=== PATIENT | female | born 2000 | race Caucasian/White ===

== ENCOUNTER 2024-08-15 17:51 | Emergency (ER) | payer BC, SELFPAY ==
--- NOTE | 2024-08-15 18:00 | ED_ITS ---
HPI - URI/Sore Throat General Chief Complaint: Upper Respiratory Infection Stated Complaint: Sinus/Cough Time Seen by Provider: 08/15/24 17:55 Source: patient Mode of arrival: ambulatory Limitations: no limitations History of Present Illness HPI Narrative: Patient is a 24-year-old female who presents with fever, chills, sinus congestion and mild cough for 3 days. Patient has tried Mucinex with no relief. Denies any nausea, vomiting, diarrhea. 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 Related Data Allergies Allergy/AdvReac Type Severity Reaction Status Date / Time shrimp Allergy Unknown Unknown Verified 06/02/18 11:37 Review of Systems Review of Systems: All systems reviewed & are unremarkable except as noted in HPI and below Constitutional: Constitutional: Reports chills, Denies fatigue, Reports fever(s), Denies headache(s), Denies malaise and Denies weakness Eyes: Eyes: Denies blurry vision, Denies itchy eyes and Denies loss of vision ENT: Denies otalgia, Denies headache(s), Reports nasal congestion, Denies sinus pain and Denies sore throat Cardiovascular: Cardiovascular: Denies chest pain, Denies irregular heart rhythm and Denies dyspnea Respiratory: Respiratory: Reports cough and Denies dyspnea Gastrointestinal: Gastrointestinal: Denies abdominal pain, Denies diarrhea, Denies nausea and Denies vomiting Musculoskeletal: Musculoskeletal: Denies back pain, Denies myalgias and Denies arthralgias Integumentary/Breasts: Skin/Breast: Denies pruritus and Denies rash Neurologic: Denies headache(s), Denies loss of vision and Denies weakness Psychiatric: Psychiatric: Reports no additional psychiatric complaints Endocrine: Endocrine: Denies fatigue Allergic/Immunologic: Allergic/Immunologic: Denies itchy eyes PMFSH Comments At time of signature, agree with nursing past medical, surgical, social and family history. There is no relevant family history pertinent to the presenting complaint. Exam Const: General: cooperative, healthy appearing, comfortable, no acute distress and well nourished Nutritional Appearance: well nourished Noble entation/consciousness: patient oriented x3 Limitations: no limitations HENMT: Head: normal to inspection, normocephalic and atraumatic Ears: hearing grossly normal bilaterally, external ears normal, TM's normal bilaterally, EAC's normal and no periauricular adenopathy Face/Nose/Sinus: Normal external nose present, Abnormal mucous membranes and turbinates present erythematous bilateral and diffuse, normal facial exam, sinuses nontender and face symmetric Face and sinus: normal facial exam, sinuses nontender and face symmetric Mouth: Yes Normal oral and palatal mucosa present, Yes lip normal, Yes tongue normal, Yes Normal salivary glands and ducts present, Yes oropharynx normal and Yes moist mucous membranes Teeth and gingiva: dentition normal Throat: posterior oropharynx normal, tonsils normal and uvula midline Eyes: General: appearance normal, both eyes and all related structures Alignment and Position: alignment normal and position normal Periorbital: periorbital findings normal Eyelids: eyelids normal Pupils: Equal, round and reactive pupils present Neck: Neck: normal visual inspection, full ROM, no lymphadenopathy and supple Chest: Chest palpation & inspection: normal inspection of the chest and normal palpation of entire chest wall Resp: Effort & Inspection: normal respiratory effort and able to speak in complete sentences Auscultation: clear to auscultation bilaterally, no crackles, no rales, no rhonchi and no wheezes Cardio: Rate: regular rate Rhythm: regular rhythm Heart sounds: S1 normal heart sound present and S2 normal heart sound present GI: Inspection: normal to inspection Skin: General skin exam: normal color and no rashes or lesions noted Neuro: General: patient oriented x3 and moves all extremities Cranial nerves: Yes Equal, round and reactive pupils present Speech: normal speech Gait exam (Neuro): Normal gait present Extrem: General: normal to inspection, full ROM and no edema Psych: Appearance: grossly normal and well kempt Mental Status: mental status grossly normal Speech and movement: Normal speech and movement present Affect: normal affect Attitude: cooperative Thought process: Normal thought process present Course Course Emergency Course: Discharge instructions reviewed with patient, as well as provided in writing per nursing staff. The instructions also include specific and strict return/GO TO THE ER as well as f/u information. All questions have been answered, and the patient deny any further questions with discharge and discharge plan. Portions of this record may have been created with voice recognition software Level of Care: Express Care Visit Vital Signs Vital signs: Vital Signs Pulse Rate 90 08/15/24 18:20 Respiratory Rate 15 08/15/24 18:20 Pulse Oximetry 100 08/15/24 18:20 Temperature 36.8 C 08/15/24 18:22 Pulse Rate 90 08/15/24 18:22 Respiratory Rate 15 08/15/24 18:22 Blood Pressure 114/66 08/15/24 18:22 Pulse Oximetry 100 08/15/24 18:22 Oxygen Delivery Room Air 08/15/24 18:22 Reviewed MDM - URI/Sore Throat MDM Narrative Medical decision making narrative: Pt well hydrated appearing, in no respiratory distress, hemodynamically stable. Recommend supportive care. The patient is stable at time of discharge the clinical impression was discussed and the patient was given the opportunity to ask questions, which were addressed as completely as possible given the information available at present. Anticipatory guidance and return to care precautions were discussed and the importance of primary care follow-up was stressed and encouraged. The patient voiced understanding of the plan, indicati ons to return, and the need for follow-up. Differential diagnosis considered: Bronchitis, Marie virus, strep pharyngitis, allergic rhinitis, upper respiratory tract infection, sinusitis, rhinosinusitis, nasopharyngitis. viral pharyngitis, otitis media, otitis externa, otitis effusion, foreign body, cerumen impaction, viral syndrome, and influenza.? Exam findings show no acute concerns or changes; patient is non-toxic appearing and is in no distress.? Patient is appropriate for outpatient treatment and follow- up.? Medical Records Attestation: I reviewed the patient's medical records. Lab Data Attestation: I reviewed the patient's lab results. Labs: Lab Results 08/15/24 Range/Units 18:33 POC Influenza A Ag Positive (Negative) POC Influenza B Ag Negative (Negative) POC SARS CoV-2 Ag Negative (Negative) Discharge Plan Discharge Clinical Impression: Influenza Patient Disposition: Home, Self-Care Condition: Stable Instructions: Influenza (ED) Additional Instructions: Were positive for influenza A. Your Covid is negative Your symptoms are due to a viral illness, which is not treated with antibiotics. Viral symptoms can be present for up to a few weeks. -For fever/pain, you may take: Tylenol 650-1000mg by mouth every 4-6 hours. Do not exceed 4000mg in 24 hours. Advil (Ibuprofen) 600 mg by mouth every 6 hours. Do not exceed 2400mg in 24 hours. 8 AM: Tylenol 11 AM: Ibuprofen 2 PM: Tylenol 5 PM: Ibuprofen 8 PM: Tylenol 11 PM: Ibuprofen 2 AM: Tylenol 5 AM: Ibuprofen -Antihistamine medication such as Benadryl/Zyrtec at night and Claritin/Hetal during the day can help improve symptoms. -Use Flonase twice a day for 5 days then daily to help reduce the inflammation and dry up your sinuses. -You can also use Sudafed behind the pharmacy counter(12 or 24 hour). Be sure to drink plenty of water with these medications at least 8 ounces with every dose and it is important to drink 8 to 10 glasses of water per day. Water is a natural decongestant -Eat and drink things that are easy to swallow, like tea or soup, or popsicles. -Oral rinses such as: Salt water gargles and/or may use topical anesthetic (eg. Chloraseptic spray) or lozenges to relieve dryness or throat pain). -Frequent hand washing or hand product development actuary is one of the best ways to prevent s pread of infection. -Using a vaporizer or humidifier at night will also help thin secretions and help with coughing up phlegm. -Follow up with primary care provider in 3-5 days if condition is not improving - For new or worsening symptoms go directly to the nearest ER Patient Language: Yemeni Prescriptions: New fluticasone propionate [Flonase Allergy Relief] 50 mcg/actuation spray,suspension 1 spray intranasal DAILY Qty: 16 0RF Rx Instructions: administer into each nostril Follow-up/Referrals: Yarelis,JAYDE Stafford [Primary Care Provider] - 3 Days Stand Alone Forms: Work/School Release IP Time of Disposition: 18:36
[2024-08-15 18:20] VITALS: PULSE 90; RESP 15; O2SAT 100
[2024-08-15 18:22] VITALS: BP 114/66; PULSE 90; RESP 15; TEMP 36.8; O2SAT 100
[2024-08-15 18:35] LABS: EDCOVIDSCREEN Negative (Negative); EDINFLUASCREEN Positive (Negative); EDINFLUBSCREEN Negative (Negative)
== END 2024-08-15 18:45 | disposition home or self-care (01) ==
PROVIDERS: Emergency Provider Nurse Practitioner Family; PCP Physician Assistant
DX: J10.1 Influenza due to other identified influenza virus with other respiratory manifestations (principal); Z20.822 Contact with and (suspected) exposure to COVID-19
CPT/HCPCS: 87426; 87804; 99203; G0463

== ENCOUNTER 2024-10-23 17:41 | Emergency (ER) | payer BC, SELFPAY ==
--- OUTSIDE RECORDS SUMMARY | 2024-10-23 17:43 | XMS_ITS | Encounter Summary ---
Author Organization [facility] Address [address] [place] [address] Care Team Providers Care Promotions Team Leader Name Role Phone Milly Santoyo PA-C Primary Care Provider [phone] Nadine Kerns NP Primary Care Provider [phone] Encounter Details Date Type Department Care Team (Late st Contact Info) Description 12/18/2023 [employer] Message Enc [facility] Medical Group Family & Internal Medicine [address] [address] Milly Santoyo PA-[place] [facility] [place] [address] TB test and physical form Social History Tobacco Use Types Packs/Day Years Used Date Smoking Tobacco: Never Smokeless Tobacco: Never Alcohol Use Standard Drinks/Week Comments No 0 (1 standard drink = 0.6 oz pur e alcohol) AUDIT-C Answer Date Recorded Frequency of Alcohol Consumption Never 09/21/2018 Average Number of Drinks Not on file 019 Frequency of Binge Drinking Not on file 08/25 PHQ-2 Answer Date Recorded Patient Health Questionnaire-2 Score 2 01/13/2023 Education Answer Date Recorded What is the highest level of school you have completed or the highest degree you have received? High school graduate 02/07/2019 Comments No Sex and Gender Information Value Date Recorded Sex Assigned at Female 10/11/2018 8:26 PM CDT Legal Sex Female 4:21 PM CDT Gender Identity Female 10/11/2018 8:26 PM CDT Sexual Orientation Straight 10/11/2018 8: 26 PM CDT Occupation Industry Job Start Date Job End Date Not on file Not on file Not on file Not on file documented as of this encounter Functional Status * RETIRED Are you deaf or do you have serious difficulty hearing Answer Date of Assessment Author Status No 10/15/2018 1:12 PM CDT Activ e * RETIRED Are you blind or do you have serious difficulty seeing, even when wearing glasses? Answer Date of Assessment Author Status No 10/15/2018 1:12 PM CDT Activ e * Do you have serious difficulty walking or climbing stairs? Answer Date of Assessment Author Status No 10/15/2018 1:12 PM CDT Minna Short RN Active * Do you have difficulty dressing or bathing? Answer Date of Assessment Author Status No 10/15/2018 1:12 PM CDT Minna Short RN Active * Because of a physical, mental, or emotional condition, do you have difficulty doing errands alone such as visiting a doctor's office or shopping? Answer Date of Assessment Author Status No 10/15/2018 1:12 PM CDT Minna Short RN Active documented as of this encounter Mental Status * Because of a physical, mental, or emotional condition, do you have serious difficulty concentrating, remembering, or making decisions? Answer Entry Date Author Status No 10/13/2018 8:28 AM CDT Lea Mcmahon RN Active documented in this encounter Progress Notes * Laura Li MA - 12/18/2023 10:06 AM CDT Physical and TB test results printed and put up front documented in this encounter Plan of Treatment Not on file documented as of this encounter Visit Diagnoses Not on filedocumented in this encounter Additional Health Concerns Assessment Noted Time PHQ-9 Depression Total Score: 10 023 9:10 AM CDT documented as of this encounter Care Teams Promotions Team Leader Relationship Specialty Start Date End Date Milly Santoyo PA-C PCP - General PHYSICIAN WEB SERVICES DEVELOPER 01/13/23 08/26/24 [place] [id number] [address] PCP - General Nurse Practitioner Family 08/27/24 documented as of this encounter
--- OUTSIDE RECORDS SUMMARY | 2024-10-23 17:43 | XMS_ITS | Encounter Summary ---
Author Organization [facility] Address [address] [place] [address] Care Team Providers Care Family Service Aide Name Role Phone Milly Santoyo PA-C Primary Care Provider [phone] Nadine Kerns NP Primary Care Provider [phone] Encounter Details Date Type Department Care Team (Late st Contact Info) Description 03/22/2023 [employer] Message Enc [facility] Medical Group Family & Internal Medicine [address] [address] Milly Santoyo PA-C [facility] [place] [address] Prescription Social History Tobacco Use Types Packs/Day Years [...] Mcmahon RN Active documented in this encounter Plan of Treatment Not on file documented as of this encounter Visit Diagnoses Not on filedocumented in this encounter Additional Health Concerns Infection Onset Date Last Indicated Resolved Time COVID-19 Rule Out 05/11/2023 05/11/2023 05/11/2023 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
--- OUTSIDE RECORDS SUMMARY | 2024-10-23 17:43 | XMS_ITS | Encounter Summary ---
Author Organization [facility] Address [address] [place] [address] Care Team Providers Care Shift Coordinator Name Role Phone None, Provider Primary Care Provider Ania Juarez MD Primary Care Provider Melonie Bobby [facility] Primary Care Provider + Milly Santoyo-C Primary Care Provider [phone] Nadine Kerns NP Primary Care Provider [phone] Encounter Details Date Type Department Care Team (Latest Contact Info) Description 05/01/[address] [facility] Medical Group Sara Mancuso MD Social History Tobacco Use Types Packs/Day Years Used Date Smoking Tobacco: Never Assessed Comments Unknown Sex and Gender Information Value Date Recorded Sex Assigned at Female 10/11/2018 8:26 PM CDT Legal Sex Female 4:21 PM CDT Gender Identity Female 10/11/2018 8:26 PM CDT Sexual Orientation Straight 10/11/2018 8: 26 PM CDT documented as of this encounter Plan of Treatment Not on file documented as of this encounter Visit Diagnoses Not on filedocumented in this encounter Additional Health Concerns Infection Onset Date Last Indicated Resolved Time COVID-19 Rule Out 05/11/2023 05/11/2023 05/11/2023 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 COVID-19 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 Out 11/15/2023 11/15/2023 11/15/2023 8:15 PM CDT documented as of this encounter Care Teams Shift Coordinator Relationship Specialty Start Date End Date None, Provider, PCP - General 05/29/18 09/20/18 Ania Dixon MD [address] [facility], [address] [address] PCP - General FAMILY PRACTICE 09/21/18 02/12/19 [facility] [address] [address] PCP - General Nurse Practitioner Family 02/13/1912/25 Milly Santoyo, PATachoC [address] [address] PCP - General PHYSICIAN FLAP LINING BINDER 01/13/23 08/26/24 [place] [address] [facility] [address] [address] PCP - General Nurse Practitioner Family 08/27/24 documented as of this encounter
--- OUTSIDE RECORDS SUMMARY | 2024-10-23 17:43 | XMS_ITS | Clinical Summary ---
Author Organization [facility] Address [address] [place] [address] Care Team Providers Care Electronic Publications Specialist Name Role Phone Melonie Bobby MAYTE-BENCH WORKER APPRENTICE Primary Care Provider Source Comments [facility],non-owned Affiliates and Associated Physician Practices is amultiple site organization consisting of ambulatory clinics and hospital sitesin [place], [place], [place] and [place]. This disclosure is being madepursuant to the Care Everywhere program and may not contain all information available regarding this patient. Last updated 18.[facility] Allergies Active Allergy Reactions Criticality Noted Date Comments Shellfish Allergy Dizziness High 04/24/2019 Medications * Be aware that medications may not be up to date on this document. Alwaysverify current medications with the patient. sertraline (ZOLOFT) 25 MG tablet Take 25 mg by mouth at bedtime Active naproxen (NAPROSYN) 375 MG tablet Take 1 tablet by mouth 2 times daily 14 tablet 9 Active Additional Information Patient not taking.Reported on 06/01/2021 cyclobenzaprine (FLEXERIL) 5 MG tablet Take 1 tablet by mouth 3 times daily as needed (Muscle spasms) 14 tablet 9 Active Additional Information Patient not taking.Reported on 06/01/2021 acetaminophen-c odeine (TYLENOL #3) 300-30 MG tablet Take 1 tablet by mouth every 6 hours as needed pain Active Levonorgestrel (POLO) 13.5 MG Acti ve oseltamivir (TAMIFLU) 75 MG capsule 1 po bid for 5 days 10 capsule 2 Active amoxicillin-cla vulanate (Augmentin) 875-125 MG tablet Take 1 (one) tablet by mouth 2 times daily with morning and evening meal 20 tablet 3 Active Active Problems No known active problems Immunizations Immunization Administration Dates Next Due DTaP VACCINE IM (6wk-6yrs) 02/21/2005,,2000,2000,07/15 HEP B VACCINE, PED/ADOL 05/11/2001,2000, HIB BOOSTER 09/20/2001,2000,2000 ,2000 MMR 02/21/2005,09/20/2001 POLIO IPV 02/21/2005,05/11/2001,2000 ,2000 PPD 02/21/2005 VARICELLA 05/11/2001 Social History Tobacco Use Types Packs/Day Years Used Date Smoking Tobacco: Never Smokeless Tobacco: Never Tobacco Cessation:Counseling Given: Not Answered PHQ-2 Answer Date Recorded PHQ2 TOTAL SCORE 0 06/01/2021 Comments No Sex and Gender Information Value Date Recorded Sex Assigned at Not on file Legal Sex Female 6:56 AM TELEPATHIST Gender Identity Not on file Sexual Orientation Not on file Last Filed Vital Signs Vital Sign Reading Time Taken Comments Blood Pressure 114/62 03/16/2023 8:45 AM CDT Pulse 86 03/16/2023 8:45 AM CDT Temperature 36.8 C (98.2 F) 03/16/2023 8:45 AM CDT Respiratory Rate 14 09/13/2021 10:55 AM CDT Oxygen Saturation 99% 03/16/2023 8:45 AM CDT Inhaled Oxygen Concentration - - Weight 47.6 kg (105 lb) 09/13/2021 10:55 AM CDT Height 162.6 cm (5' 4 ) 03/16/2023 8:45 AM CDT Body Mass Index 18.02 09/13/2021 10:55 AM CDT Plan of Treatment Health Maintenance Due Date Last Done Comments PAP SMEAR 2000 DTAP/TDAP/TD VACCINES (6 - Tdap) 2011 02/21/2005, 09/12/2001, 2000, Additional history exists HIV SCREENING 2015 HPV VACCINE (1 - 3-dose series) 2015 CHLAMYDIA/GONORRHEA SCREENING 2016 HEPATITIS C SCREENING 04/30/2018 COVID-19 VACCINE (2023- season) 2024 DEPRESSION SCREENING 06/26/2024 INFLUENZA VACCINE (Season Ended) 2025 04/27/2021, 05/13/2020 ZOSTER VACCINE (1 of 2) 2050 HEPATITIS B VACCINE Completed 05/11/2001, 2000, 2000 HIB VACCINE Completed 09/20/2001, 10/25, 2000, Additional history exists MENINGOCOCCAL (Group B) VACCINE SHARED DECISION-MAKING Aged Out No longer eligible based on patient's age to complete this topic MENINGOCOCCAL GROUPS A/C/Y/W VACCINE Aged Out No longer eligible based on patient's age to complete this topic PNEUMOCOCCAL VACCINE Aged Out No long er eligible based on patient's age to complete this topic Insurance MEDICAID - [place] [employer] LIABILITY Republican Liability Care Teams Electronic Publications Specialist Relationship Specialty Start Date End Date Melonie Bobby APRN-MARIA A [address] [place] [address] PCP - General Nurse Practitioner Family 12/24/20
--- OUTSIDE RECORDS SUMMARY | 2024-10-23 17:43 | XMS_ITS | Encounter Summary ---
Author Organization [facility] Address [address] [place] [address] Care Team Providers Care Retail Project Merchandiser Name Role Phone None, Provider Primary Care Provider Ania Juarez MD Primary Care Provider [phone] Melonie Bobby [facility] Primary Care Provider + Milly Santoyo-C Primary Care Provider [phone] Nadine Kerns NP Primary Care Provider Encounter Details Date Type Department Care Team (Late st Contact Info) Description 05/14/2018 Community Orders [facility] EPICCARE LINK Ania Dixon MD [address] [place] [address] [place] [id number] Social History Tobacco Use Types Packs/Day Years [...] documented as of this encounter Visit Diagnoses Diagnosis (HHS/HCC)- Primary state, incidental documented in this encounter Additional Health Concerns Infection Onset Date Last Indicated Resolved Time COVID-19 Rule Out 05/11/2023 05/11/2023 05/11/2023 1:16 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 COVID-19 Rule Out 11/15/2023 11/15/2023 11/15/2023 8:15 PM CDT documented as of this encounter Care Teams Retail Project Merchandiser Relationship Specialty Start Date End Date None, Provider, PCP - General 05/29/18 09/20/18 Ania Dixon MD [address], [place] [address] [place] [address] PCP - General FAMILY PRACTICE 09/21/18 02/12/19 [facility]ie [facility] [address], [place] [address] [place] [address] PCP - General Nurse Practitioner Family 02/13/19 7 Milly Santoyo PA-C [address], [place] [address] [place], [place] [address] PCP - General PHYSICIAN OPTICAL INSTRUMENT INSPECTOR 01/13/23 08/26/24 Nadine Kerns TYING IN MACHINE OPERATOR [address] [address] PCP - General Nurse Practitioner Family 08/27/24 documented as of this encounter
--- OUTSIDE RECORDS SUMMARY | 2024-10-23 17:43 | XMS_ITS | Encounter Summary ---
Author Organization [facility] Address [address] [place] [address] Care Team Providers Care Pattern Changer Name Role Phone Milly Santoyo PA-C Primary Care Provider [phone] Nadine Kerns NP Primary Care Provider [phone] Encounter Details Date Type Department Care Team (Late st Contact Info) Description 12/18/2023 [employer] Message Enc [facility] Medical Group Family & Internal Medicine [address] [address] [facility] Provider appointment request Social History Tobacco Use Types Packs/Day Years [...] documented as of this encounter Care Teams Pattern Changer Relationship Specialty Start Date End Date Milly Santoyo PA-C PCP - General PHYSICIAN PRINTING MECHANIST 01/13/23 08/26/24 [place] [address] [place] [address] PCP - General Nurse Practitioner Family 08/27/24 documented as of this encounter
--- OUTSIDE RECORDS SUMMARY | 2024-10-23 17:43 | XMS_ITS | Encounter Summary ---
Author Organization [facility] Address [address] [place] [id number] Care Team Providers Care Jewelry Setter Name Role Phone Ania Dixon MD Primary Care Provider [phone] Melonie Bobby DIRECTOR CASE- Primary Care Provider + Milly Santoyo-C Primary Care Provider [phone] Nadine Kerns NP Primary Care Provider [phone] Encounter Details Date Type Department Care Team (Late st Contact Info) Description 10/24/2018 Hospital Follow-up Call [facility] [place] [address] Yenny Odonnell, RN Social History Tobacco Use Types Packs/Day Years Used Date Smoking Tobacco: Never Smokeless Tobacco: Never Alcohol Use Standard Drinks/Week Comments No 0 (1 standard drink = 0.6 oz pur e alcohol) AUDIT-C Answer Date Recorded Frequency of Alcohol Consumption Never 09/21/2018 Average Number of Drinks Not on file 019 Frequency of Binge Drinking Not on file 08/25 Comments No Sex and Gender Information Value Date Recorded Sex Assigned at Female 10/11/2018 8:26 PM CDT Legal Sex Female 4:21 PM CDT Gender Identity Female 10/11/2018 8:26 PM CDT Sexual Orientation Straight 10/11/2018 8: 26 PM CDT documented as of this encounter Functional Status [...] Rule Out 05/11/2023 05/11/2023 05/11/2023 1:16 PM LOCAL COORDINATOR COVID-19 Rule Out 11/15/2023 11/15/2023 11/15/2023 8:15 PM CDT documented as of this encounter Care Teams Jewelry Setter Relationship Specialty Start Date End Date Ania Dixon MD [address] , [address] [address] PCP - General FAMILY PRACTICE 09/21/18 02/12/19 [facility] [address], [address] [place] [address] PCP - General Nurse Practitioner Family 02/13/19 7/ Milly Santoyo PA-C [address] [address] PCP - General PHYSICIAN [employer] OPERATOR HELPER 01/13/23 08/26/24 [place] [id number] [address] PCP - General Nurse Practitioner Family 08/27/24 documented as of this encounter
--- OUTSIDE RECORDS SUMMARY | 2024-10-23 17:43 | XMS_ITS | Clinical Summary ---
Author Organization [facility] Address [address] [place] [address] Care Team Providers Care Contract Administration Manager Name Role Phone Nadine Kerns Carmen SATELLITE DISH REPAIRER Primary Care Provider [phone] Allergies Active Allergy Reactions Criticality Noted Date Comments Shellfish-Derived Products Swelling,Dizziness 09/21/2018 I blacked out Shrimp Extract Other (see comment) Low 08/09/2018 Pt reports swollen throat and tingling extremities Medications levonorgestrel (POLO) 13.5 MG IUD Active clindamycin (CLEOCIN T) 1 % lotion APPLY TO AFFECTED AREAS OF FACE DAILY. 04/30/2022 Active tretinoin (RETIN-A) 0.025 % cream APPLY A PEA SIZED DROP TO AFFECTED AREAS OF SKIN EVERY NIGHT 04/30/2022 Active FLUoxetine (PROZAC) 20 MG capsuleIndicati ons:CHARLES (generalized anxiety disorder) Take 1 capsule (20 mg total) by mouth daily. 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 Will restart sertraline. FU in 1 month. If still having issues may consider prn buspar for panic ([facility]) 10/13/2018 02/08/20 19 Backache 11/04/2013 02/07/2019 Well child visit 10/30/2013 02/07/2019 Encounters Date Type Department Care Team Description 08/15/2024 Scan [facility] INFO SRVCS Scanned, Doc [facility] from Last 3 Months Immunizations Immunization Administration Dates Next Due Dtap (Acel-Immune) 02/21/2005, 2,2000,2000,2000 Dtap (Generic) 02/21/2005, 2,2000,2000,2000 Fluzone 6 Months+ Quad (0.5 mL Prefilled Syringe) 04/27/2021,05/13/2020 Hepatitis B Pediatric 05/11/2001,2000,02/2000 Hib Vaccine, Prp-D 09/20/2001, 1,2000,2000 MMR (Generic) 02/21/2005,09/20/2001 Polio Ipv (Generic) 02/21/2005, 1,2000,2000 Tdap (Generic) 08/03/2018 Varicella Vaccine 05/11/2001 Family History Medical History Relation Comments Hypertension Mother Diabetes Paternal Grandmother Relation Status Comments Father Alive Mother Alive Paternal Grandmother Social History Tobacco Use Types Packs/Day Years Used Date Smoking Tobacco: Never Smokeless Tobacco: Never Tobacco Cessation:Counseling Given: Not Answered Alcohol Use Standard Drinks/Week Comments No 0 (1 standard drink = 0.6 oz pur e alcohol) AUDIT-C Answer Date Recorded Frequency of Alcohol Consumption Never 09/21/2018 Average Number of Drinks Not on file 019 Frequency of Binge Drinking Not on file 08/25 PHQ-2 Answer Date Recorded Patient Health Questionnaire-2 Score 0 06/10/2024 Education Answer Date Recorded What is the [...] file Not on file Not on file Last Filed Vital Signs Vital Sign Reading Time Taken Comments Blood Pressure 96/68 06/10/2024 3:16 PM GAS PLANT SPECIALIST Pulse 86 06/10/2024 3:16 PM GAS PLANT SPECIALIST Temperature 36.9 C (98.5 F) 06/10/2024 3:16 PM GAS PLANT SPECIALIST Respiratory Rate 16 06/10/2024 3:16 PM GAS PLANT SPECIALIST Oxygen Saturation 99% 06/10/2024 3:16 PM GAS PLANT SPECIALIST Inhaled Oxygen Concentration - - Weight 54.4 kg (120 lb) 06/10/2024 3:16 PM GAS PLANT SPECIALIST Height 165.1 cm (5' 5 ) 06/10/2024 3:16 PM GAS PLANT SPECIALIST Body Mass Index 19.97 06/10/2024 3:16 PM GAS PLANT SPECIALIST Plan of Treatment Health Maintenance Due Date Last Done Comments Cervical Cancer Screening Pap Smear (Age 21 to 29) Every 3 Years 2000 Cervical Cancer Screening 2000 HPV Vaccines (1 - 3-dose series) 2015 Hepatitis C 2018 COVID-19 Vaccine ( season) 2024 Annual Physical 05/03/2024 05/03/2023, 04/27/2021 PHQ-2 (Physician [place]) 06/26/2024 06/10/2024 DTaP, Tdap and Td Vaccines (7 - Td or Tdap) 08/03/2028 08/03/2018, 02/21/2005, 02/21/2005, Additional history exists Hepatitis B Vaccines Completed 05/11/2001, 2000, 2000 Meningococcal B Vaccine Aged Out No l onger eligible based on patient's age to complete this topic Meningococcal Vaccine Aged Out No justin lakisha eligible based on patient's age to complete this topic Pneumococcal Vaccine: Pediatrics (0 to 5 Years) and At-Risk Patients (6 to 49 Years) Aged Out No longer eligible based on patient's age to complete this topic RSV Immunizations Under 20 Months Aged Out No longer eligible based on patient's age to complete this topic Advance Directives Documents on File Type Date Recorded Patient Cover Marker Expl anation Legal Documents 06/13/2024 10:08 AM Care Teams Contract Administration Manager Relationship Specialty Start [place] [id number] [facility] [address] [place] [address] PCP - General Nurse Practitioner Family 08/27/24
[2024-10-23 17:50] VITALS: BP 106/66; PULSE 73; RESP 16; TEMP 36.4; O2SAT 99
--- NOTE | 2024-10-23 17:54 | ED_ITS ---
HPI - Female Genitourinary General Chief complaint: Urogenital-Female Stated complaint: uti symptoms Time Seen by Provider: 10/23/24 17:55 Source: patient, RN notes reviewed and old records reviewed Mode of arrival: ambulatory Limitations: no limitations History of Present Illness HPI Narrative: 24 year old female who presents to express care with complaints of 2 day ago history of urinary burning, right sided cramping and frequency and urgency of urination, has been taking cranberry pills with no resolution in symptoms. Patient reports that she has had frequent urinary tract infections since she was 16 years old. Patient reports that she has seen an urologist in the past and is due to return for follow up in a few months for reevaluation. Patient reports that she took Keflex for 5 days on the 3rd of this month for UTI. Patient reports no fevers, chills or sweats or any nausea or vomiting. MD elicited complaint: dysuria and UTI Pertinent past history: other (frequent UTI's) Onset (ago): day(s) (started 2 days ago) Severity: mild Vaginal discharge: none Vaginal bleeding: none Urinary symptoms: Dysuria, Urgency, Frequency and Difficulty Urinating (urinates and still feels like she needs to go) Sexual activity: Yes Related Data Home Medications ?Medication ?Instructions ?Recorded ?Confirmed ?Last Taken ?Type fluoxetine 20 mg capsule mg 10/23/24 Unknown History levonorgestrel 14 mcg/24 hr (up to 1 device intrauterine ONCE 10/23/24 10/23/24 Unknown History 3 yrs) 13.5 mg intrauterine device (Avani) Allergies Allergy/AdvReac Type Severity Reaction Status Date / Time shrimp Allergy Unknown throat Verified 10/23/24 17:52 Review of Systems Review of Systems: CONSTITUTIONAL: Denies fever, chills, or sweats. CARDIOVASCULAR: Denies chest pain, palpitations, or edema. RESPIRATORY: Denies cough or dyspnea. GASTROINTESTINAL: reports right sided lateral mid abdomen cramping, no, nausea, vomiting, or diarrhea. GENITOURINARY: Reports dysuria, frequency, urgency. Denies flank pain or hematuria. SKIN: Denies rash or itching. MUSCULOSKELETAL: Denies back pain or myalgia. Denies CVA tenderness NEUROLOGIC: Denies headache All systems reviewed & are unremarkable except as noted in HPI and below PMFSH Past Medical History Medical History (Updated 10/23/24 @ 18:34 by Michaela Piña NP) Recurrent UTI Anxiety Surgical History Surgical History (Updated 10/23/24 @ 18:33 by Michaela Piña NP) H/O Spinal surgery spinal fusion for scoliosis Comments At time of signature, agree with nursing past medical, surgical, social and family history. There is no relevant family history pertinent to the presenting complaint Exam Narrative: GENERAL: Well-appearing, well-nourished, and in no acute distress. HEAD: Normocephalic, atraumatic. NECK: Supple. no lymphadenopathy CHEST: Clear to auscultation. No respiratory distress.SAO2 99% on room air HEART: Regular rate and rhythm. No murmur heard. Normal peripheral pulses. ABDOMEN: Soft, cramping sensation reported to right lateral mid abdomen at times, nondistended, normal active bowel sounds, No McBurney point tenderness No CVA tenderness EXTREMITIES: Normal range of motion. No edema. SKIN: Warm, dry, no rash. NEURO: No focal deficits. Alert and oriented x3. Course Course Emergency Course: Patient is aware of diagnosis, understands and agrees to treatment plan.? Anticipatory guidance given.? Patient agrees to follow-up as directed and is aware of reasons to seek care at the emergency department. Portions of this record may have been created with voice recognition software Level of Care: Express Care Visit Vital Signs Vital signs: Vital Signs Temperature 36.4 C L 10/23/24 17:50 Pulse Rate 73 10/23/24 17:50 Respiratory Rate 16 10/23/24 17:50 Blood Pressure 106/66 10/23/24 17:50 Pulse Oximetry 99 10/23/24 17:50 Oxygen Delivery Room Air 10/23/24 17:50 Temperature 36.4 C L 10/23/24 17:50 Pulse Rate 73 10/23/24 17:50 Respiratory Rate 16 10/23/24 17:50 Blood Pressure 106/66 10/23/24 17:50 Pulse Oximetry 99 10/23/24 17:50 Oxygen Delivery Room Air 10/23/24 17:50 reviewed MDM - Female Genitourinary MDM Narrative Medical decision making narrative: Exam findings and UA show no acute concerns or changes; patient is non-toxic appearing and is in no distress.? Patient is appropriate for outpatient treatment and follow-up. Differential Diagnosis Differential diagnosis: Likely urinary tract infection, cystitis and other (Dysuria, urinary frequency and urgency) Medical Records Attestation: I reviewed the patient's medical records. Lab Data Attestation: I reviewed the patient's lab results. Lab results narrative: urine dip : glucose negative bilirubin negative, ketone negative specific gravity 1.025 blood 1+ pH 6.5 protein + urobilinogen 1.0, nitrite negative leukocyte 3+ urine dark and cloudy Labs: Lab Results 10/23/24 Range/Units 17:58 POC Urine Color Dark POC Urine Clarity Cloudy POC Urine pH 6.5 POC Ur Specif [place] 1.025 POC Urine Protein 1+ (Negative) POC Ur Glucose (UA) Negative (Negative) POC Urine Ketones Negative (Negative) POC Urine Blood 1+ (Negative) POC Urine Nitrite Negative (Negative) POC Urine Bilirubin Negative (Negative) POC Urine Urobilinogen 1.0 POC U Leukocyte Esteras 3+ (Negative) reviewed Critical Care Time Critical Care Time Critical Care Time: No Discharge Plan Discharge Clinical Impression: Urinary tract infection Qualifiers: Urinary tract infection type: site unspecified Hematuria presence: with hematuria Qualified Code(s): N39.0 - Urinary tract infection, site not specified Patient Disposition: Home Condition: Stable Instructions: Antibiotic Form, Urinary Tract Infection in Women (ED) Additional Instructions: Increase fluids especially cranberry juice and water Avoid caffeine and carbonated beverages Antibiotic as directed Tylenol/ibuprofen for pain or fever Follow-up with her primary care provider if further problems or concerns Recheck if you have fever over 101, nausea and vomiting. If your symptoms persist, change or worsen significantly before you can contact your personal physician then please, without delay, go to the emergency department for further evaluation. Follow-up with PCP in 7-10 days or sooner if needed Patient Language: [place] Islander Prescriptions: New amoxicillin-pot clavulanate 875-125 mg tablet 1 tablet PO Q12H Qty: 20 0RF Rx Instructions: take with food do recommend either taking a probiotic or eating Activa yogurt while taking this medication No Action fluoxetine 20 mg capsule Avani 14 mcg/24 hr (3 yrs) 13.5 mg intrauterine device 1 device intrauterine ONCE Rx Instructions: as a single dose Follow-up/Referrals: Yarelis,JAYDE Stafford [Primary Care Provider] - Time of Disposition: 18:12 Quality Rice Coma Scale Eyes: Open Verbal: Oriented and Alert Motor: Follows Commands Simon Coma Total Score: 15
[2024-10-23 18:02] LABS: EDUAAPPEAR Cloudy; EDUABILI Negative (Negative); EDUABLOOD 1+ (Negative); EDUACOLOR1 Dark; EDUAGLUCOSE Negative (Negative); EDUAKETONE Negative (Negative); EDUALEUKO 3+ (Negative); EDUANITRATE Negative (Negative); EDUAPH 6.5; EDUAPROTEIN 1+ (Negative); EDUASPGRAVITY 1.025
== END 2024-10-23 18:14 | disposition home or self-care (01) ==
PROVIDERS: Emergency Provider Registered Nurse; PCP Physician Assistant
DX: N39.0 Urinary tract infection, site not specified (principal)
CPT/HCPCS: 81003; 87086; 99213; G0463